=== PATIENT | male | born 1980 | race Caucasian/White ===

== ENCOUNTER 2023-07-09 15:32 | Outpatient (CLI) | payer OTHER ==
--- NOTE | 2023-07-10 09:41 | MRI Report ---
PROCEDURE: Ankle RT WO INDICATIONS: BILATERAL ANKLE PAIN TECHNIQUE: Noncontrast Magnetic Resonance Imaging (MRI) of the ankle/hindfoot was performed utilizing the follow ing sequences: sagittal T1 spin echo, sagittal STIR, axial PD fast spin echo, axial T2 fast spin echo with fat saturation, coronal PD fast spin echo with fat saturation, and coronal T2 fast spin echo wi th fat saturation. COMPARISON: None. FINDINGS: Image quality: Excellent. Bones and joints: No acute trabecular bone injury or fracture. Mild osseous edema and cystic changes are seen in the ce ntral talus adjacent to the sinus tarsi, likely related to ligamentous traction versus intraosseous g anglion formation.. No hindfoot coalition. The ankle mortise is maintained. No osteochondral defect i s seen at the talar dome. There is minimal degenerative spurring of the dorsal aspect of the talonav icular joint. Medial structures: The deltoid ligament and the spring ligament complex are intact. There is mild distal posterior tibia lis tenosynovitis. The flexor digitorum longus and flexor hallucis longus tendons are intact. The pos terior tibial neurovascular bundle appears normal within the tarsal tunnel, without extrinsic mass ef fect. Lateral structures: The anterior and posterior distal tibiofibular ligaments are intact. There is chronically tearing of the anterior talofibular ligament. Remote prior moderate grade sprains of the calcaneofibular ligamen t and the posterior talofibular ligament are noted. The peroneus brevis and longus tendons demonstrat e mild tendinosis. There is effacement of the normal fat signal in the sinus tarsi. A 10 x 6 x 11 mm ganglion cyst is seen arising from the lateral sinus tarsi. Anterior structures: The tibialis anterior, extensor hallucis longus, and extensor digitorum longus tendons appear intact. Posterior and plantar structures: The Achilles tendon is intact. The proximal plantar fascia is intact. No disproportionate atrophy of the abductor digiti minimi muscle. IMPRESSION: 1.Chronic complete tearing of the anterior talofibular ligament. Remote prior grade 2 sprains of the calcaneofibular ligament and posterior talofibular ligament. 2.Mild peroneus brevis and longus tendinosis. 3.Effacement of the normal fat signal in the sinus tarsi, which is nonspecific but can be seen in ass ociation with the clinical syndrome of sinus tarsi syndrome. 11 mm ganglion cyst is seen at the later al sinus tarsi. 4.Mild distal posterior tibialis tenosynovitis. Reviewed by: Michael Wan MD on 07/10/2023 9:40 AM PST Approved by: Michael Wan MD on 07/10/2023 9:40 AM PST Station ID: [id number]
--- NOTE | 2023-07-10 09:43 | MRI Report ---
PROCEDURE: Ankle LT WO INDICATIONS: BILATERAL ANKLE PAIN TECHNIQUE: Noncontrast Magnetic Resonance Imaging (MRI) of the ankle/hindfoot was performed utilizing the follow ing sequences: sagittal T1 spin echo, sagittal STIR, axial PD fast spin echo, axial T2 fast spin echo with fat saturation, coronal PD fast spin echo with fat saturation, and coronal T2 fast spin echo wi th fat saturation. COMPARISON: None. FINDINGS: Image quality: Excellent. Bones and joints: No acute trabecular bone injury or fracture. Mild osseous edema and cystic changes are seen within th e central portion of the talus adjacent to the sinus tarsi, which may be related to chronic ligamento us traction or intraosseous ganglia. No hindfoot coalition. Focal subchondral cystic changes at the m edial talar dome without definite overlying cartilage loss, possibly related to a prior impaction inj ury or subtle chronic osteochondral lesion. No loose osteochondral fragment is seen. A 16 x 5 x 11 mm ganglion cyst is seen along the dorsal lateral aspect of the talonavicular joint. Mild Medial structures: The tibiospring ligament and the superolateral band of the spring ligament appear mildly thickened, s uspicious for a remote prior low-grade sprains. The deep deltoid ligament fibers appear to be intact. There is mild distal posterior tibialis tenosynovitis. The flexor digitorum longus and flexor halluc is longus tendons are intact. The posterior tibial neurovascular bundle appears normal within the tar torey tunnel, without extrinsic mass effect. Lateral structures: The anterior and posterior distal tibiofibular ligaments are intact. Remote prior sprains of the ante rior talofibular ligament and calcaneofibular ligament. The posterior talofibular ligament is intact. The peroneus brevis and longus tendons demonstrate mild tendinosis. Cystic changes are seen within t he sinus tarsi. A lobular ganglion cyst is seen at the lateral sinus tarsi extending posteriorly katelynn g the posterior subtalar facet and measuring up to 22 x 4 x 7 mm. Anterior structures: The tibialis anterior, extensor hallucis longus, and extensor digitorum longus tendons appear intact. Posterior and plantar structures: The Achilles tendon is intact. The proximal plantar fascia is intact. No disproportionate atrophy of the abductor digiti minimi muscle. IMPRESSION: 1.Remote prior grade 1-2 sprains of the anterior talofibular ligament and calcaneofibular ligament. 2.Moderate peroneus brevis and longus tendinosis. 3.Effacement of the sinus tarsi fat is seen, which is nonspecific but can be seen in association with the clinical syndrome of sinus tarsi syndrome. 4.Lobular ganglion cyst is seen within the sinus tarsi and extending into the lateral tissues adjacen t to the posterior subtalar facet measuring up to 22 mm in maximum dimension. Additional smaller gang lion cyst along the dorsal lateral aspect of the talonavicular joint measures up to 16 mm. 5.Mild distal posterior tibialis tenosynovitis. 6.Remote prior low-grade sprains of the tibiospring ligament and superomedial band of the spring liga ment. 7.Focal subchondral cystic changes versus tiny osteochondral lesion at the medial talar dome without a definite cartilage defect visualized. No loose osteochondral fragment is seen. Reviewed by: Michael Wan MD on 07/10/2023 9:42 AM PST Approved by: Michael Wan MD on 07/10/2023 9:42 AM PST Station ID: [id number]
== END 2023-07-09 15:33 | disposition home or self-care (01) ==
LOC: DI 15:32
PROVIDERS: ATTEND Podiatrist
DX: S93.491A Sprain of other ligament of right ankle, initial encounter (principal); M67.971 Unspecified disorder of synovium and tendon, right ankle and foot; M65.9 Synovitis and tenosynovitis, unspecified; M67.471 Ganglion, right ankle and foot; M67.972 Unspecified disorder of synovium and tendon, left ankle and foot; M67.472 Ganglion, left ankle and foot